=== PATIENT | male | born 2000 | race Caucasian/White ===

== ENCOUNTER 2021-08-12 12:25 | Emergency (ER) | payer OTHER ==
[~2021-08-12] VITALS: Ht 172.7 cm; Wt 73.3 kg
[2021-08-12] MEDS ORDERED: NAPR500T6 PO (12:46)
[2021-08-12 18:48] VITALS: BP 134/58
== END 2021-08-12 18:49 | disposition home or self-care (01) ==
LOC: M ED 12:25
DX: S06.0X0A Concussion without loss of consciousness, initial encounter (principal); W01.0XXA Fall on same level from slipping, tripping and stumbling without subsequent striking against object, initial encounter; Y92.830 Public park as the place of occurrence of the external cause